=== PATIENT | female | born 1980 | race Two or more races ===

== ENCOUNTER 2016-08-18 17:54 | Emergency (ER) | payer OTHER ==
[~2016-08-18] VITALS: Ht 152.4 cm; Wt 61.2 kg
--- NOTE | 2016-08-18 18:15 | EKG ---
[address] [address] Test Date: 2016-08-18 Test Time: 18:11:16 Pat Name: KELSEA BULLOCK Department: Room: Gender: F Field Auditor: JOHNSON : 1980 Requested By: ROMIE KHOURY Order Number: [id number] Reading MD: Measurements Intervals [place] Rate: 82 P: 22 AR: 134 QRS: 36 QRSD: 82 T: 45 QT: 364 QTc: 428 Interpretive Statements SINUS RHYTHM QRS(T) CONTOUR ABNORMALITY CONSIDER ANTEROLATERAL MYOCARDIAL DAMAGE POSSIBLY ABNORMAL ECG RI6.01 Unconfirmed report No previous ECG available for comparison
[2016-08-18 18:46] VITALS: BP 110/72
--- NOTE | 2016-08-18 18:46 | PHYS DOC ---
General Chief Complaint: RAPID HEART RATE Stated Complaint: RAPID HEART RATE Time Seen by MD: 18:29 Source: patient, family Problems: History of Present Illness Initial Comments Patient with for racing heart beat. Patient states she had an episode of this on Thursday as they were driving [place] on a small vacation. She says last 5 or 6 hours. Says she felt like her heart was beating fast, and she felt somewhat lightheaded. She had some nausea as well. She knows that she was feeling short of breath and she had numbness and tingling in her fingers and toes. This seemed to go away, she had a similar episode the following morning. She also had another episode earlier this week, and is here today for further episode started about noontime at time of physician evaluation his primary much resolved. She was concerned today because she felt more lightheaded like, like she might pass out, but she had no actual syncope. She also has some nausea but no vomiting. Says she hasn't had episodes like this briefly last year but does not see a doctor for it. She had no fever or chills today. She has no runny nose or sore throat. There is no cough with this and no chest pain. She has the nausea but no vomiting. There is no abdominal pain. There is no change in bowel or bladder habits. She did have some dysuria last week but is currently being treated for urinary tract infection symptoms that's improving. Her last period was the 15th of this month. She denies chance of . She denies any other acute focal extremity or neurologic complains. She notes no particular stressors at home or things that might produce anxiety. Other than present for care today she's been nothing at home for this but make an appointment with primary Thursday. There are no increasing or decreasing factors noted. Patient states she's felt very restless slightly, like she can't sit still, and has to get up and take prolonged walks at times as well. Patient's past medical history is remarkable for migraine headaches and reflux. She takes Nexium as well as Fiorinal on an as-needed basis. She is a nonsmoker and occasional user of ethanol. Allergies: Coded Allergies: morphine (Verified Allergy, Unknown, 08/18/16) Past Medical History Medical History: GERD, other Social History Smoker: non-smoker Alcohol: occasionally Review of Systems All Other Systems: Reviewed and Negative Physical Exam General Appearance: WD/WN, no apparent distress Ear, Nose, Throat: normal ENT inspection, normal pharynx Neck: full range of motion, supple, normal inspection Respiratory: lungs clear, normal breath sounds, no respiratory distress Cardiovascular: regular rate, rhythm, no edema Gastrointestinal: non tender, soft, no organomegaly Back: no CVA tenderness, no vertebral tenderness Extremities: non-tender, normal inspection, no pedal edema Neurologic/Psychiatric: no motor/sensory deficits, alert, normal mood/affect, oriented x 3 Skin: normal color Lymphatic: no adenopathy Comments Generally this is a thin female in no acute distress. She does look mildly anxious, and appears to look more so as we talk. Vitals are as noted. Pertinent findings on physical exam shows the ears and throat to be clear. Neck is supple without adenopathy or JVD. The chest is clear bilaterally. Prevascular exams regular rate and rhythm without murmur. Abdomen soft and nontender without mass or megaly. There are no peritoneal findings. Back shows no CVA tenderness. Externally show no rash cyanosis or edema. She is awake alert oriented, does appear to be mildly anxious. She is cooperative with exam. Remainder of physical exam is clinically unremarkable. Orders, Labs, Meds Old charts note no prior ER visits within the current system. EKG shows sinus 82. Normal axis. No acute ST or T-wave changes. Labs today are clinically unremarkable. Chest x-ray shows no acute changes per the emergency physician. 2034 Patient resting comfortably in the ER. I did discuss with her earlier in the course of heart no is going on without seeing the tachycardia, but this does sound like it could be related to anxiety with palpitations, dyspnea, lightheadedness, and carpopedal paresthesias. She did have an episode of palpitations here in the emergency department which Is monitor strip. It does appear that she has sinus tachycardia about 1:30 during these episodes. This did resolve by the time of physician reevaluation, but I was able to evaluate the monitor strip with results as above. I discussed with the patient that she certainly does have some episodes of tachycardia but the etiology remains unknown. Her lab tests are unremarkable. Thyroid studies are pending but she says she had thyroid done in her own physician's office on postoperative amoxicillin this was borderline low. She is not on any thyroid supplements. Discussed with her that given that we do see an episode of tachycardia, suggested that she should try to move her appointment up for next week this week , and see if she needed a referral for Holter monitor or an event monitor. I did write these parameters on copies of her rhythm strip that given her to take to her own physician. She strongly thinks this may be related to anxiety, and it may well be, though her tachycardia somewhat out of proportion. I do think it 's important rule out other causes forcibly chalking up to anxiety or putting her anxiolytics. She her voice understanding of the need to follow up with primary care soon as possible for possible event monitoring and cardiology referral, as well as to return to the ER immediately as needed if worsening anyway, especially for episodes that resolved don't resolve or associated with chest pain, shortness of breath, or syncope. She looks well, in no acute discomfort or stress, and okay for discharge home at this time with her . ROMIE KHOURY MD Aug 18, 2016 18:46
[2016-08-18 19:32] LABS: BASO % 0 % (0-3); EOS % 0 % (0-3); HEMATOCRIT 38.9 % (36.0-47.0); HEMOGLOBIN 12.7 g/dL (12.0-15.5); LYMPH # 1.5 x10^3/uL (1.0-4.8); LYMPH % 22 % (24-48); MEAN CORPUSCULAR HEMOGLOBIN 29 pg (25-35); MEAN CORPUSCULAR HGB CONC 33 g/dL (31-37); MEAN CORPUSCULAR VOLUME 88 fL (79-100); MONO # 0.5 x10^3/uL (0.0-1.1); MONO % 7 % (0-9); NEUT # 4.8 x10^3uL (1.8-7.7); NEUT % 70 % (31-73); PLATELET COUNT 305 x10^3/uL (140-400); RED BLOOD COUNT 4.44 x10^6/uL (3.50-5.40); RED CELL DISTRIBUTION WIDTH 15.3 % (11.5-14.5); WHITE BLOOD COUNT 6.9 x10^3/uL (4.0-11.0)
[2016-08-18 19:48] LABS: BILIRUBIN,URINE NEG (NEG); CLARITY,URINE HAZY; COLOR,URINE YELLOW; GLUCOSE,URINE NEG (NEG); NITRITE,URINE NEG (NEG); UROBILINOGEN,URINE 0.2 mg/dL (0.2 mg/dL)
[2016-08-18 19:53] LABS: BACTERIA,URINE FEW /HPF (0-FEW); SQUAMOUS EPITHELIAL CELL,UR MANY /LPF
[2016-08-18 19:54] LABS: ALBUMIN 4.1 g/dL (3.4-5.0); ALBUMIN/GLOBULIN RATIO 1.1 (1.0-1.7); CALCIUM 8.8 mg/dL (8.5-10.1); CREATININE 0.9 mg/dL (0.6-1.0); GFR 70.5; POTASSIUM 3.6 mmol/L (3.5-5.1); TOTAL BILIRUBIN 0.3 mg/dL (0.2-1.0); TOTAL PROTEIN 7.8 g/dL (6.4-8.2)
--- NOTE | 2016-08-19 08:31 | RAD ---
Portable chest, 08/18/2016: History: Chest discomfort, palpitations The heart size is normal. The lungs are clear. There is no evidence of pleural fluid. IMPRESSION: No significant abnormality is detected.
== END 2016-08-18 21:05 | disposition home or self-care (01) ==
LOC: ER 17:54
DX: R00.0 Tachycardia, unspecified (principal); R30.0 Dysuria; R42 Dizziness and giddiness; R11.0 Nausea; K21.9 Gastro-esophageal reflux disease without esophagitis; Z88.5 Allergy status to narcotic agent
CPT/HCPCS: 36415; 71010; 80053; 81001; 81025; 82553; 84436; 84443; 84484; 85027; 85379; 93005; 99285-25